=== PATIENT | male | born 1935 | race Caucasian/White ===

== ENCOUNTER 2018-08-25 12:40 | Emergency (ER) | payer OTHER ==
--- OUTSIDE RECORDS SUMMARY | 2018-08-25 13:01 | XMS REPORT | Clinical Summary ---
:1935 Author Organization [facility] Address [address] [place] [id number] Care Team Providers Name Role Phone Lydia Primary Care Provider Allergies No Known Allergies Medications Medication Sig Dispensed Refills Start Date End Date Status montelukast (SINGULAIR) Take 10 mg by 0 Active 10 mg tablet mouth daily. simvastatin (ZOCOR) 20 MG Take 20 mg by 0 Active tablet mouth nightly. cyanocobalamin 1000 MCG Take 5,000 mcg 0 Active tablet by mouth daily. memantine 28 mg CSpX Take by mouth 0 Active daily. rivastigmine (EXELON) 9.5 Place 1 patch 0 Active mg/24 hr patch onto the skin daily. Active Problems Problem Noted Date Severe aortic stenosis 01/03/2016 Aortic stenosis 2015 Hyperlipidemia 2015 Family History Medical History Relation Name Comments Heart disease Father Heart disease Mother Relation Name Status Comments Father Mother Social History Tobacco Use Types Packs/Day Years Used Date Never Smoker Smokeless Tobacco: Never Used Alcohol Use Drinks/Week oz/Week Comments No Sex Assigned at Date Recorded Not on file Job Start Date Occupation Industry Not on file Not on file Not on file Travel History Travel Start Travel End No recent travel history available. Last Filed Vital Signs Not on file Plan of Treatment Health Maintenance Due Date Last Done Comments INFLUENZA VACCINE 03/23/2018 Implants Implanted Type Area Personal Care Attendant Device Shelf Model / Identifier Expiration Serial / Date Lot Corevalve Evolut R Transcatheter Aortic Valve Valves N/A: [employer] 05/16 [id number] / Implanted: Qty: 1 on 01/03/2016 by Magnus William MD Aorta [id number] / Results Not on fileafter 08/24/2017 Insurance Payer Benefit Plan / Group Subscriber ID Type Phone Address MEDICARE MEDICARE A B xxxxxxxxxx Medicare OTHER-COMMERCIAL GENERIC COMMERCIAL xxxxxxxxx Advance Directives For more information, please contact:[address] [phone] Code Status Date Activated Date Inactivated Comments Full Code 01/03/2016 2:42 PM 01/04/2016 8:38 PM This code status was determined by: Patient Full Code 01/03/2016 5:50 AM 01/03/2016 2:42 PM This code status was determined by: Patient Full Code 12/22/2015 10:58 AM 12/22/2015 11:29 AM This code status was determined by: Patient
--- OUTSIDE RECORDS SUMMARY | 2018-08-25 13:01 | XMS REPORT ---
:1935 Author Organization [employer] Care Team Providers Name Role Phone Conrad Dennis Provider Role Unavailable Allergies, Adverse Reactions, Alerts Substance Reaction Event Type N.K.D.A. 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 Assessment 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 Active Assessment Pain of right hip joint M25.551 Active Assessment Sciatica, left side M54.32 Active Assessment Pain of left hip joint M25.552 Active Assessment 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 Medications Medication Code Code Instructions Start End Status Dosage System Date Date Meloxicam [facility] 26928377742 15 MG Active TAKE 1 TABLET BY MOUTH EVERY DAY Simvastatin [facility] 05252037547 20 MG Active TAKE 1 TABLET AT BEDTIME Rivastigmine [facility] [address]-83 Active not defined Vitamin B 12 [facility] [address] Active not defined Melatonin [facility] [address] Active not defined Aspirin [facility] [address]-17 Active not defined Montelukast [facility] 06516073489 10 MG Active TAKE 1 Sodium TABLET BY MOUTH EVERY EVENING Namenda XR [facility] [address]-63 Active not defined Results No Known Results Summary Purpose eClinicalWorks Submission
--- OUTSIDE RECORDS SUMMARY | 2018-08-25 13:01 | XMS REPORT ---
:1935 [facility] Address [address] [place] [address] Care Team Providers Name Role Phone Unavailable Unavailable Unavailable Problems This patient has no known problems. Allergies, Adverse Reactions, Alerts This patient has no known allergies or adverse reactions. Medications This patient has no known medications. Results Test Description Test Time Test Comments Text Results Atomic Results Result Comments RAD, CHEST, 2 2017-07-21 Reason for FINAL REPORT PATIENT ID: BECKY 11:18:00 Exam:->E78.4Reason for [id number] HISTORY : Exam:->I35.0Reason for E78.4I35.0Z95.2. Exam:->Z95.2 Comparison: 04/11/2016 Comment: Two views of the chest, PA and lateral, were obtained. The cardiac silhouette is within normal limits. There is no pleural effusion, pneumothorax or infiltrate. No lytic or blastic abnormalities. There is atherosclerotic calcification of the thoracic aorta. There are some stable calcified granulomata in the left lung. There are some prominent interstitial lung markings seen predominantly in the mid-upper lungs. Multilevel degenerative disc changes of the thoracic spine are seen. A stable stent/prosthetic valve is seen over the proximal aorta. Impression: No acute cardiothoracic abnormalities. No significant interval change. Signed: Humberto Fenton Verified Date/Time: 07/21/2017 11:18:27 Reading Location: [address] Radiology Reading Room
--- NOTE | 2018-08-25 15:31 | RAD REPORT ---
EXAM DESCRIPTION: RAD - Hip Right 2 View - 08/25/2018 2:01 pm CLINICAL HISTORY: Right hip pain FINDINGS: An area sclerosis is present within right inferior pubic ramus equivocal for a nondisplaced fracture. Age is indeterminate Right hip arthroplasty has been performed. The prosthesis is in good position. No evidence of looseni ng of the prosthesis. Bones are osteoporotic
--- NOTE | 2018-08-25 15:32 | RAD REPORT ---
EXAM DESCRIPTION: RAD - Pelvis - 08/25/2018 2:01 pm CLINICAL HISTORY: Right hip pain FINDINGS: An area sclerosis is present within right inferior pubic ramus equivocal for a nondisplace d fracture. Age is indeterminate Right hip arthroplasty has been performed. The prosthesis is in good position. No evidence of looseni ng of the prosthesis. Bones are osteoporotic
--- NOTE | 2018-08-25 16:39 | RAD REPORT ---
EXAM DESCRIPTION: CT - Pelvis Wo Cont - 08/25/2018 4:18 pm CLINICAL HISTORY: Right hip pain status post fall COMPARISON: August 25 x-ray TECHNIQUE: Computed axial tomography of the pelvis was obtained with coronal and sagittal reconstruc tion All CT scans are performed using dose optimization technique as appropriate and may include automated exposure control or mA/KV adjustment according to patient size. FINDINGS: Nondisplaced fracture involves the right inferior pubic ramus Right hip arthroplasty. Prosthesis is in good position without loosening. No dislocation IMPRESSION: Acute nondisplaced fracture right inferior pubic ramus
--- NOTE | 2018-08-25 16:57 | ER ---
Nurse's Notes [facility] Name: Eriberto Vela Age: 82 yrs Sex: Male : 1935 Arrival Date: 08/25/2018 Time: 12:41 Bed 2 Private MD: Enriqueta Salas Diagnosis: Inferior Pubic Rami Fracture, non-displaced Presentation: 08/25 13:01 Presenting complaint: Patient states: fell getting out of the car, landed on R hip. c/o ch pain to R hip, and has prior hip replacement. denies other pain. Care prior to arrival: None. Mechanism of Injury: Fall seated in a car approximately 1.5 feet. Trauma event details: Injury occurred in the [facility], Injury occurred: at home. Injury occurred: August 25, 2018 Injury occurred at: 12:15. 13:01 Acuity: KERA 3 13:01 Method Of Arrival: Wheelchair 13:04 Transition of care: patient was not received from another setting of care. Onset of ch symptoms was August 25, 2018 at 12:15. Risk Assessment: Do you want to hurt yourself or someone else? Patient reports no desire to harm self or others. Initial Sepsis Screen: Does the patient meet any 2 criteria? No. Patient's initial sepsis screen is negative. Does the patient have a suspected source of infection? No. Patient's initial sepsis screen is negative. Triage Assessment: 13:05 General: Appears in no apparent distress. uncomfortable, Behavior is calm, cooperative, ch appropriate for age. Pain: Complains of pain in right gluteus william, right gluteal fold and right hip. Trauma Activation: Not Applicable Physician: ED Physician; Name: ; Notified At: ; Arrived At: Physician: General Surgeon; Name: ; Notified At: ; Arrived At: Physician: Radiology; Name: ; Notified At: ; Arrived At: Physician: Respiratory; Name: ; Notified At: ; Arrived At: Physician: Lab; Name: ; Notified At: ; Arrived At: 13:01 Chon Christina states not applicable ch Historical: - Allergies: 13:05 Codeine; ch - Home Meds: 17:21 Unable to obtain [Active]; sg - PMHx: 17:21 Unable to obtain; sg - PSHx: 17:21 Unable to obtain; sg - Immunization history: Last tetanus immunization: unknown. - Social history:: Smoking status: Patient/guardian denies using tobacco. - Ebola Screening: : Patient negative for fever greater than or equal to 101.5 degrees Fahrenheit, and additional compatible Ebola Virus Disease symptoms Patient denies exposure to infectious person Patient denies travel to an Ebola-affected area in the 21 days before illness onset No symptoms or risks identified at this time. - Family history:: not pertinent. - Hospitalizations: : No recent hospitalization is reported. Screenin:15 Abuse screen: Denies threats or abuse. Denies injuries from another. Nutritional sg screening: No deficits noted. Tuberculosis screening: No symptoms or risk factors identified. Never had TB. Fall Risk None identified. Primary Survey: 13:01 NO uncontrolled hemorrhage observed. A: The patient is alert. Airway: patent. ch Breathing/Chest: Respiratory pattern: regular, Respiratory effort: spontaneous, unlabored. Circulation: Pulses: palpable bilateral radial, brachial, femoral, popliteal, posterior tibial and and dorsalis pedis arteries.. Skin color: pink, Skin temperature: warm, dry. Disability Alert. Exposure/Environment: All clothing and personal items were removed. Forensic evidence collection is not deemed to be indicated at this time. Items placed in patient belonging bag. There is no evidence of uncontrolled external bleeding. Obvious injury(ies) are noted at this time: R elbow abrasion, R hip pain A warming method has been applied: A warm blanket has been provided to the patient. 13:15 Reassessment Airway Airway Patent Oral cavity Clear Trachea Midline Breathing/Chest sg Respiratory pattern Regular Respiratory effort Spontaneous Unlabored Circulation Heart rhythm Sinus rhythm Heart tones Present Pulses Palpable Color Pale Temperature Warm Dry Disability Alert. Secondary Survey: 13:15 HEENT: Head No injury/deformity Face No injury/deformity Eyes: No injury or deformity sg noted. Other glasses noted Ears: clear bilaterally. Nose: clear to bilateral nares. Gastrointestinal: Abdomen is soft, non-distended, Bowel sounds present in all quadrants. Palpation No deficit noted Patient is continent of stool. : No signs and/or symptoms were reported regarding the genitourinary system. Musculoskeletal: Circulation, motion, and sensation intact. Range of motion: limited in right hip Swelling absent Reports pain in right elbow and right arm and right hip pt reports is able to bear weight while standing but reports pain with ROM and causes it to be limited. Injury Description: Abrasion sustained to right elbow. Assessment: 13:01 General: Appears in no apparent distress. uncomfortable. ch 13:15 General: Appears in no apparent distress. uncomfortable, slender, well groomed, well sg developed, well nourished, Behavior is calm, cooperative, appropriate for age. Pain: Complains of pain in right hip, right elbow, right shoulder Quality of pain is described as aching, tender. Neuro: Level of Consciousness is awake, alert, obeys commands, Oriented to person, place, pt confused to situation, time at this time. Train Caller are equal bilaterally Moves all extremities. Full function Gait is steady, Speech is normal, Facial symmetry appears normal. Cardiovascular: Patient's skin is warm and dry. Respiratory: Airway is patent Respiratory effort is even, unlabored, Respiratory pattern is regular, symmetrical. GI: Abdomen is flat, non-distended. : No signs and/or symptoms were reported regarding the genitourinary system. EENT: No signs and/or symptoms were reported regarding the EENT system. Derm: Skin is pink, warm \T\ dry. Musculoskeletal: Circulation, motion, and sensation intact. Range of motion: limited in right hip Reports pain in right arm and right hip. Injury Description: Abrasion sustained to right elbow. 13:50 Reassessment: xray at bedside at this time. 17:26 Reassessment: Patient appears in no apparent distress at this time. pt assisted from exam room stretcher to ER wheelchair, pt ambulatory with assist, pt reports he is unable to move the Right leg, pt visualized standing and amble to get into wheelchair. pt reports pain upon sitting on pillows in wheelchair, encouraged to use a pillow at home for comfort, changing position frequently, take medication as prescribed, pt son stated understanding. Vital Signs: 13:01 BP 182 / 84; Pulse 82; Resp 18; Temp 97.6; Pulse Ox 100% on R/A; Pain 8/10; ch 14:00 BP 155 / 92; Pulse 80; Resp 17; Pulse Ox 100% on R/A; Pain 8/10; sg 15:00 BP 166 / 92; Pulse 88; Resp 17; Pulse Ox 100% on R/A; Pain 6/10; sg 16:00 BP 162 / 88; Pulse 78; Resp 18 S; Pulse Ox 100% on R/A; sg 17:00 BP 166 / 82; Pulse 77; Resp 17; Pulse Ox 99% on R/A; sg Mirna Coma Score: 13:01 Eye Response: spontaneous(4). Verbal Response: oriented(5). Motor Response: obeys ch commands(6). Total: 15. 14:00 Eye Response: spontaneous(4). Verbal Response: oriented(5). Motor Response: obeys sg commands(6). Total: 15. 15:00 Eye Response: spontaneous(4). Verbal Response: oriented(5). Motor Response: obeys sg commands(6). Total: 15. Trauma Score (Adult): 13:01 Eye Response: spontaneous(1); Verbal Response: oriented(1); Motor Response: obeys ch commands(2); Systolic BP: > 89 mm Hg(4); Respiratory Rate: 10 to 29 per min(4); Mirna Score: 15; Trauma Score: 12 14:00 Eye Response: spontaneous(1); Verbal Response: oriented(1); Motor Response: obeys sg commands(2); Systolic BP: > 89 mm Hg(4); Respiratory Rate: 10 to 29 per min(4); Mirna Score: 15; Trauma Score: 12 15:00 Eye Response: spontaneous(1); Verbal Response: oriented(1); Motor Response: obeys sg commands(2); Systolic BP: > 89 mm Hg(4); Respiratory Rate: 10 to 29 per min(4); Mirna Score: 15; Trauma Score: 12 ED Course: 12:41 Patient arrived in ED. as 12:42 Enriqueta Salas is Private Physician. as 12:54 Jignesh Givens MD is Attending Physician. rn 13:02 Triage completed. 13:05 Arm band placed on left wrist. Patient placed in an exam room, on a stretcher, on gambling monitor, on pulse oximetry. 13:15 Patient has correct armband on for positive identification. Bed in low position. Call light in reach. Side rails up X2. color television console monitor on. Pulse ox on. NIBP on. Door closed. Warm blanket given. Pillow given. Verbal reassurance given. Head of bed elevated. 13:16 Dressings: Kerlix X 1; right elbow 4X4s X 1; right elbow. Patient maintains SpO2 sg saturation greater than 95% on room air. Wound care: to abrasion, located on right elbow was cleaned with soap and water, Patient tolerated well. Thermoregulation: warm blanket given to patient. 13:50 Assisted with urinal. sg 13:55 Jonathan Díaz, RN is Primary Nurse. sg 14:00 XRAY Pelvis In Process Unspecified. EDMS 14:00 XRAY Hip RIGHT 2 view In Process Unspecified. EDMS 14:00 X-ray completed. Portable x-ray completed in exam room. Patient tolerated procedure jb2 well. 16:18 CT Pelvis wo Cont In Process Unspecified. EDMS 16:20 CT completed. Patient tolerated procedure well. Patient moved back from CT. 2 17:15 No provider procedures requiring assistance completed. Patient did not have IV access sg during this emergency room visit. Administered Medications: No medications were administered Intake: 13:50 assisted with urinal sg Output: 13:50 Urine: 300ml (Voided); Total: 300ml. sg 15:00 Urine: 200ml (Voided); Total: 500ml. sg 13:50 assisted with urinal sg Outcome: 16:57 Discharge ordered by . rn 17:10 Patient's length of stay in the Emergency Department was greater than [address] results, radiology resultsPatient's length of stay extended due to 17:18 Discharged to home via wheelchair, with family. sg 17:18 Condition: good 17:18 Discharge instructions given to patient, family, direct care provider, Instructed on discharge instructions, follow up and referral plans. medication usage, safety practices, Demonstrated understanding of instructions, follow-up care, medications, Prescriptions given X 1. 17:30 Patient left the ED. sg Signatures: Dispatcher [employer] EDAZ Bella Mendez RN RN Jonathan Díaz RN RN Manuel Elizabeth 2 Britney Díaz Roman, MD MD rn McGuire, Victoria 2 Corrections: (The following items were deleted from the chart) 17:22 13:15 Neuro: Level of Consciousness is awake, alert, obeys commands, Oriented to sg person, place, time, Train Caller are equal bilaterally Moves all extremities. Full function Gait is steady, Speech is normal, Facial symmetry appears normal, sg
--- NOTE | 2018-08-25 16:57 | EDPHYS ---
Physician Documentation [facility] Name: Eriberto Vela Age: 82 yrs Sex: Male : 1935 Arrival Date: 08/25/2018 Time: 12:41 Bed 2 Private MD: Enriqueta Salas ED Physician Jignesh Givens HPI: 08/25 13:05 This 82 yrs old Male presents to ER via Wheelchair with complaints of Fall rn Injury, Hip Pain. 13:05 Details of fall: The patient fell from an upright position, while standing. Onset: The rn symptoms/episode began/occurred just prior to arrival. Associated injuries: The patient sustained right hip. Severity of symptoms: At their worst the symptoms were mild, in the emergency department the symptoms are unchanged. The patient has experienced a previous episode. Reports trying to get out of vehicle, fell, landed on right hip, + pain to right hip, able to get up and walk, + previous right hip replacement, no other injury, not on blood thinners. . Historical: - Allergies: 13:05 Codeine; ch - Home Meds: 17:21 Unable to obtain [Active]; sg - PMHx: 17:21 Unable to obtain; sg - PSHx: 17:21 Unable to obtain; sg - Immunization history: Last tetanus immunization: unknown. - Social history:: Smoking status: Patient/guardian denies using tobacco. - Ebola Screening: : Patient negative for fever greater than or equal to 101.5 degrees Fahrenheit, and additional compatible Ebola Virus Disease symptoms Patient denies exposure to infectious person Patient denies travel to an Ebola-affected area in the 21 days before illness onset No symptoms or risks identified at this time. - Family history:: not pertinent. - Hospitalizations: : No recent hospitalization is reported. ROS: 13:05 Constitutional: Negative for fever, chills, and weight loss, Neck: Negative for injury, rn pain, and swelling, Cardiovascular: Negative for chest pain Abdomen/GI: Negative for abdominal pain, nausea, vomiting, diarrhea, and constipation, Back: Negative for injury and pain, MS/Extremity: + right hip injury and pain Skin: Negative for injury, rash, and discoloration, Neuro: Negative for headache, weakness, numbness, tingling, and seizure. Exam: 13:05 Constitutional: This is a well developed, well nourished patient who is awake, alert, rn and in no acute distress. Head/Face: Normocephalic, atraumatic. Neck: no cervical tenderness or pain with ROM Chest/axilla: No deformity or tenderness Respiratory: Lungs have equal breath sounds bilaterally, clear to auscultation. No increased work of breathing, no retractions or nasal flaring. Abdomen/GI: soft, non-tender MS/ Extremity: Pulses equal, no cyanosis. + painful ROM right hip Neuro: Awake and alert, GCS 15, oriented to person, place, time, and situation. Cranial nerves II-XII grossly intact. Motor strength 5/5 in all extremities. Sensory grossly intact. Vital Signs: 13:01 BP 182 / 84; Pulse 82; Resp 18; Temp 97.6; Pulse Ox 100% on R/A; Pain 8/10; ch 14:00 BP 155 / 92; Pulse 80; Resp 17; Pulse Ox 100% on R/A; Pain 8/10; sg 15:00 BP 166 / 92; Pulse 88; Resp 17; Pulse Ox 100% on R/A; Pain 6/10; sg 16:00 BP 162 / 88; Pulse 78; Resp 18 S; Pulse Ox 100% on R/A; sg 17:00 BP 166 / 82; Pulse 77; Resp 17; Pulse Ox 99% on R/A; sg Mirna Coma Score: 13:01 Eye Response: spontaneous(4). Verbal Response: oriented(5). Motor Response: obeys ch commands(6). Total: 15. 14:00 Eye Response: spontaneous(4). Verbal Response: oriented(5). Motor Response: obeys sg commands(6). Total: 15. 15:00 Eye Response: spontaneous(4). Verbal Response: oriented(5). Motor Response: obeys sg commands(6). Total: 15. Trauma Score (Adult): 13:01 Eye Response: spontaneous(1); Verbal Response: oriented(1); Motor Response: obeys ch commands(2); Systolic BP: > 89 mm Hg(4); Respiratory Rate: 10 to 29 per min(4); [place] Score: 15; Trauma Score: 12 14:00 Eye Response: spontaneous(1); Verbal Response: oriented(1); Motor Response: obeys sg commands(2); Systolic BP: > 89 mm Hg(4); Respiratory Rate: 10 to 29 per min(4); Mirna Score: 15; Trauma Score: 12 15:00 Eye Response: spontaneous(1); Verbal Response: oriented(1); Motor Response: obeys sg commands(2); Systolic BP: > 89 mm Hg(4); Respiratory Rate: 10 to 29 per min(4); [place] Score: 15; Trauma Score: 12 MDM: 12:54 Patient medically screened. rn 16:51 Differential diagnosis: contusion, fracture. Data reviewed: vital signs, nurses notes, internet sales representative test result(s), radiologic studies, CT scan, plain films, and as a result, I will discharge patient. Counseling: I had a detailed discussion with the patient and/or guardian regarding: the historical points, exam findings, and any diagnostic results supporting the discharge/admit diagnosis, lab results, radiology results, the need for outpatient follow up, to return to the emergency department if symptoms worsen or persist or if there are any questions or concerns that arise at home. Special discussion: I discussed with the patient/guardian in detail that at this point there is no indication for admission to the hospital. It is understood, however, that if the symptoms persist or worsen the patient needs to return immediately for re-evaluation. ED course: NOn-displaced inferior pubic ramus fracture, non-operative, will dc home with prn pain meds, and return precautions, recommended cushion and ambulation. Family there to help patient and dispense medication.. 08/25 13:00 Order name: XRAY Pelvis; Complete Time: 15:46 rn 08/25 13:00 Order name: XRAY Hip RIGHT 2 view; Complete Time: 15:46 rn 08/25 15:48 Order name: CT Pelvis wo Cont; Complete Time: 16:41 rn Administered Medications: No medications were administered Disposition: 08/25/18 16:57 Discharged to Home. Impression: Inferior Pubic Rami Fracture, non-displaced. - Condition is Stable. - Discharge Instructions: Simple Pelvic Fracture, Adult. - Prescriptions for Ultram 50 mg Oral Tablet - take 1 tablet by ORAL route every 8-12 hours As needed; 20 tablet. - Medication Reconciliation Form, Thank You Letter, Antibiotic Education, Prescription Opioid Use form. - Follow up: Private Physician; When: As needed; Reason: Recheck today's complaints, Re-evaluation by your physician. - Problem is new. - Symptoms have improved. Signatures: Dispatcher [employer] EDBella Mohan RN RN Jonathan Díaz RN RN sg Nieto, Roman, MD MD enamel burner: (The following items were deleted from the chart) 17:30 16:57 08/25/2018 16:57 Discharged to Home. Impression: Inferior Pubic Rami Fracture, sg non-displaced. Condition is Stable. Forms are Medication Reconciliation Form, Thank You Letter, Antibiotic Education, Prescription Opioid Use. Follow up: Private Physician; When: As needed; Reason: Recheck today's complaints, Re-evaluation by your physician. Problem is new. Symptoms have improved. rn
== END 2018-08-25 17:30 | disposition home or self-care (01) ==
LOC: ER 12:40
DX: S32.591A Other specified fracture of right pubis, initial encounter for closed fracture (principal); Z88.5 Allergy status to narcotic agent; W17.89XA Other fall from one level to another, initial encounter; Y93.89 Activity, other specified; Y92.9 Unspecified place or not applicable
CPT/HCPCS: 72170; 72192; 99285